=== PATIENT | male | born 1975 | race American Indian/Alaskan Native ===

== ENCOUNTER 2017-05-18 16:44 | Emergency (ER) | payer SELFPAY ==
[2017-05-18 18:37] LABS: Albumin 4.7 g/dL (3.9-5); BUN/Creatinine Ratio 13; Blood Urea Nitrogen 12 mg/dL (9-20); Calcium 9.5 mg/dL (8.4-10.2); Hemolysis Index 282
[2017-05-18 18:50] LABS: Alanine Aminotransferase 21 units/L (7-56)
[2017-05-18] MEDS ORDERED: TYLENOL ONE (19:03)
[2017-05-18 19:47] LABS: Hematocrit 45.1 % (35.5-45.6); Hemoglobin 15.2 gm/dl (11.8-15.2); Mean Corpuscular HGB Conc 34 % (32-34); Mean Corpuscular Hemoglobin 32 pg (28-32); Mean Corpuscular Volume 96 fl (84-94); Platelet Count 419 K/mm3 (140-440); Red Blood Count 4.71 M/mm3 (3.65-5.03)
[2017-05-18] MEDS ORDERED: TYLENOL PO ONE (19:54)
[2017-05-18] MEDS ORDERED: APRESOLINE IV ONE (20:47)
--- NOTE | 2017-05-18 20:52 | Emergency Department Report ---
Chief Complaint: Abdominal Pain Stated Complaint: ABDOMINAL PAIN Time Seen by Provider: 05/18/17 20:45 - HPI History of Present Illness: 41-year-old AA male presents with upper abdominal pain that started since earlier this morning. Patient just got out of halfway this morning as well. After leaving halfway he admits to drinking 3 of the 24 ounce beers, smoking marijuana and using some cocaine. He denies any past medical history. No fever , nausea, vomiting. Patient denies any significant diarrhea but does say that he soiled himself. - ROS Review of Systems: Patient patient is positive for abdominal pain, lower chest pain Patient denies nausea, vomiting, fever, back pain, dysuria - Exam Vital Signs: Vital Signs 05/18/17 05/18/17 17:04 19:55 Temperature 99.5 F Pulse Rate 118 H Respiratory 20 18 Rate Blood Pressure 175/99 O2 Sat by Pulse 96 Oximetry MSE screening note: Focused history and physical exam performed. Due to findings the following was ordered: I have added to the previous abdominal pain workup a troponin, EKG, Urinalysis, CT abd/Pelvis with IV contrast and a CXR. ED Medical Decision Making - Lab Data Result diagrams: 05/18/17 19:38 05/18/17 17:43 ED Disposition for MSE Condition: Stable Referrals: PATRICIA ALCOCER MD [Primary Care Provider] - 3-5 Days
--- NOTE | 2017-05-18 21:17 | Emergency Department Report ---
ED Abdominal Pain HPI - General Chief Complaint: Abdominal Pain Stated Complaint: ABDOMINAL PAIN Time Seen by Provider: 05/18/17 20:45 Source: patient Mode of arrival: Wheelchair Limitations: No Limitations - History of Present Illness Initial Comments: Patient reports that he was brought in by [place] [employer] with complaint of abdominal pain. Patient reports that he is having cramping around his navel. He said [facility]. Patient said that he did some cocaine. He drank 3-24 ounce beer and smoked marijuana also. He has a history of high blood pressure. Pains abdomen is 10 out of 10 and crampy. No medication taken. Denies any back pain ,denies any chest pain or shortness of breath. Denies any headache. Denies any nausea or vomiting. Denies any urinary burning frequency or urgency. Denies any neck pain or stiffness. Denies any fever or chills. Patient came to ED room in a wheelchair because he said he cannot walk. Patient does not appear to be intoxicated MD Complaint: abdominal pain -: This morning Location: periumbilical Radiation: none Migration to: no migration Severity: severe Severity scale (0 -10): 10 Quality: cramping Consistency: intermittent Improves With: nothing Worsens With: nothing Context: other (unknown) Associated Symptoms: denies: nausea, vomiting, diarrhea, fever, chills, constipation, dysuria, hematemesis, hematochezia, melena, hematuria, anorexia, syncope Treatments Prior to Arrival: other ( had no treatment.) - Related Data Previous Rx's Medication Instructions Recorded Last Taken Type HYDROcodone/APAP 5-325 [[place] 1 each PO Q6HR PRN #14 tablet 06/19/14 Unknown Rx 5/325] Ibuprofen [Motrin] 800 mg PO Q8H PRN #30 tablet 06/19/14 Unknown Rx methOCARBAMOL [Robaxin] 500 mg PO BID #10 tab 06/19/14 Unknown Rx Bisacodyl [Dulcolax] 10 mg PO DAILY 2 Days #4 tab 05/19/17 Unknown Rx Naproxen [Naprosyn TAB] 500 mg PO Q12H PRN #12 tablet 05/19/17 Unknown Rx amLODIPine [Norvasc] 5 mg PO DAILY 30 Days #30 tab 05/19/17 Unknown Rx Allergies Allergy/AdvReac Type Severity Reaction Status Date / Time No Known Allergies Allergy Verified 11/28/13 16:08 ED Review of Systems ROS: Stated complaint: ABDOMINAL PAIN Other details as noted in HPI Comment: All other systems reviewed and negative Constitutional: no symptoms reported ENT: denies: throat pain, congestion Respiratory: no symptoms reported Cardiovascular: denies: chest pain, palpitations, dyspnea on exertion, orthopnea , edema, syncope, paroxysmal nocturnal dyspnea Gastrointestinal: abdominal pain. denies: nausea, vomiting, diarrhea, constipation, hematemesis, melena, hematochezia Genitourinary: denies: urgency, dysuria, frequency, hematuria, discharge, testicular pain, testicular mass Musculoskeletal: denies: back pain, joint swelling, arthralgia, myalgia Skin: denies: rash Neurological: denies: headache, weakness, numbness, paresthesias, confusion, abnormal gait, vertigo ED Past Medical Hx - Past Medical History Previous Medical History?: Yes Hx Hypertension: Yes Hx CVA: No Hx Heart Attack/AMI: No Hx Congestive Heart Failure: No Hx Diabetes: No Hx Deep Vein Thrombosis: No Hx Pulmonary Embolism: No Hx GERD: No Hx Liver Disease: No Hx Renal Disease: No Hx Sickle Cell Disease: No Hx Arthritis: No Hx Headaches / Migraines: No Hx Seizures: No Hx Kidney Stones: No Hx Psychiatric Treatment: No Hx Asthma: No Hx COPD: No Hx Tuberculosis: No Hx Dementia: No Hx HIV: No - Surgical History Past Surgical History?: Yes Hx Coronary Stent: No Hx Open Heart Surgery: No Hx Pacemaker: No Hx Internal Defibrillator: No Hx Cholecystectomy: No Hx Appendectomy: No Hx Breast Surgery: No Additional Surgical History: Right Leg surgery - Family History Family history: no significant - Social History Smoking Status: Current Some Day Smoker Substance Use Type: Alcohol, Cocaine, Other - Medications Home Medications: Home Medications Medication Instructions Recorded Confirmed Last Taken Type HYDROcodone/APAP 5-325 [[place] 1 each PO Q6HR PRN #14 tablet 06/19/14 Unknown Rx 5/325] Ibuprofen [Motrin] 800 mg PO Q8H PRN #30 tablet 06/19/14 Unknown Rx methOCARBAMOL [Robaxin] 500 mg PO BID #10 tab 06/19/14 Unknown Rx Bisacodyl [Dulcolax] 10 mg PO DAILY 2 Days #4 tab 05/19/17 Unknown Rx Naproxen [Naprosyn TAB] 500 mg PO Q12H PRN #12 tablet 05/19/17 Unknown Rx amLODIPine [Norvasc] 5 mg PO DAILY 30 Days #30 tab 05/19/17 Unknown Rx ED Physical Exam - General Limitations: No Limitations General appearance: alert, in no apparent distress - Head Head exam: Present: atraumatic, normocephalic, normal inspection, other (normal exam) - Eye Eye exam: Present: normal appearance, PERRL, EOMI. Absent: scleral icterus, conjunctival injection, nystagmus, periorbital swelling, periorbital tenderness Pupils: Present: normal accommodation - ENT ENT exam: Present: normal exam, normal orophraynx, mucous membranes moist - Neck Neck exam: Present: normal inspection, full ROM, other (no C-spine tenderness). Absent: tenderness, meningismus, lymphadenopathy, thyromegaly - Respiratory Respiratory exam: Present: normal lung sounds bilaterally. Absent: respiratory distress, chest wall tenderness, accessory muscle use - Cardiovascular Cardiovascular Exam: Present: normal rhythm, tachycardia, normal heart sounds. Absent: systolic murmur, diastolic murmur - GI/Abdominal GI/Abdominal exam: Present: soft, normal bowel sounds. Absent: distended, tenderness, guarding, rebound, rigid, organomegaly, mass, bruit, pulsatile mass , hernia - Extremities Exam Extremities exam: Present: normal inspection, full ROM, normal capillary refill , other (no Clubbing, cyanosis or edema. +2 pulses to all extremities and no neurovascular compromise). Absent: tenderness, pedal edema, joint swelling, calf tenderness - Back Exam Back exam: Present: normal inspection, full ROM, other (patient able to ambulate without any difficulty. Initially patient did not want to get up to ambulate but he got up several times after IV fluid started to go to the bathroom without any problems.). Absent: tenderness, CVA tenderness (R), CVA tenderness (L), muscle spasm, paraspinal tenderness, vertebral tenderness, rash noted - Neurological Exam Neurological exam: Present: alert, oriented X3, normal gait, reflexes normal. Absent: motor sensory deficit - Expanded Neurological Exam Expanded Neurological exam: Absent: innattentive, memory loss-remote event, memory loss- recent event, ataxia, receptive aphasia, expressive aphasia, total aphasia, tremor, protecting the airway Patient oriented to: Present: person, place, time Speech: Present: fluid speech Cranial nerves: EOM's Intact: Normal, Gag Reflex: Normal, Tongue Deviation: Normal, Nystagmus: Normal, Facial Sensation: Normal Cerebellar function: Romberg: Normal Upper motor neuron: Pronator Drift: Normal, Sensory Extinction: Normal Sensory exam: Upper Extremity Light Touch: Normal, Upper Extremity Temperature: Normal, UE 2 Point Discrimination: Normal, Lower Extremity Light Touch: Normal, Lower Extremity Pin Prick: Normal, LE 2 Point Discrimination: Normal Motor strength exam: RUE: 5, LUE: 5, RLE: 5, LLE: 5 DTR: bicep (R): 2+, bicep (L): 2+, tricep (R): 2+, tricep (L): 2+, knee (R): 2+ , knee (L): 2+, ankle (R): 2+, ankle (L): 2+ Best Eye Response ([place]): (4) open spontaneously Best Motor Response ([place]): (6) obeys commands Best Verbal Response ([place]): (5) oriented [place] Total: 15 - Psychiatric Psychiatric exam: Present: normal affect, normal mood - Skin Skin exam: Present: warm, dry, intact, normal color. Absent: rash ED Course Vital Signs 05/18/17 05/18/17 05/18/17 17:04 19:55 23:26 Temperature 99.5 F Pulse Rate 118 H 69 Respiratory 20 18 17 Rate Blood Pressure 175/99 Blood Pressure 130/81 [Right] O2 Sat by Pulse 96 97 Oximetry Vital Signs 05/18/17 05/18/17 05/18/17 17:04 19:55 23:26 Temperature 99.5 F Pulse Rate 118 H 69 Respiratory 20 18 17 Rate Blood Pressure 175/99 Blood Pressure [Left] Blood Pressure 130/81 [Right] O2 Sat by Pulse 96 97 Oximetry 05/19/17 01:25 Temperature 97.8 F Pulse Rate 66 Respiratory 18 Rate Blood Pressure Blood Pressure 127/58 [Left] Blood Pressure [Right] O2 Sat by Pulse 100 Oximetry - Reevaluation(s) Reevaluation #1: 05/18/17 22:29 Patient is stable. IV fluid infusing. Patient awaiting CT scan of the abdomen. Awaiting other lab results. White count is elevated. Tender to palpate the periumbilical area Reevaluation #2: 05/18/17 23:09 Patient abdominal exam is stable. Chest x-ray revealed no acute cardiopulmonary findings. Still waiting for CT results. Urinalysis is pending. Blood alcohol level is less than 0 Reevaluation #3: 05/19/17 00:36 Patient is stable. He received IV fluid. No abdominal pain or tenderness at present. EKG stable troponin is negative. ED Medical Decision Making - Lab Data Result diagrams: 05/18/17 19:38 05/18/17 17:43 Lab Results 05/18/17 05/18/17 05/18/17 Range/Units 17:07 17:43 18:26 WBC (4.5-11.0) K/mm3 RBC (3.65-5.03) M/mm3 Hgb (11.8-15.2) gm/dl Hct (35.5-45.6) % MCV (84-94) fl MCH (28-32) pg MCHC (32-34) % RDW (13.2-15.2) % Plt Count (140-440) K/mm3 Lymph % (Auto) [place] % (Auto) Eos % (Auto) Baso % (Auto) Lymph # [place] # Eos # Baso # Add Manual Diff Total Counted Seg Neutrophils % Seg Neuts % (Manual) (40.0-70.0) % Band Neutrophils % % Lymphocytes % (Manual) (13.4-35.0) % Reactive Lymphs % (Man) % Monocytes % (Manual) (0.0-7.3) % Eosinophils % (Manual) (0.0-4.3) % Basophils % (Manual) (0.0-1.8) % Metamyelocytes % % Myelocytes % % Promyelocytes % % Blast Cells % % Nucleated RBC % Seg Neutrophils # Seg Neutrophils # Man (1.8-7.7) K/mm3 Band Neutrophils # K/mm3 Lymphocytes # (Manual) (1.2-5.4) K/mm3 Abs React Lymphs (Man) K/mm3 Monocytes # (Manual) (0.0-0.8) K/mm3 Eosinophils # (Manual) (0.0-0.4) K/mm3 Basophils # (Manual) (0.0-0.1) K/mm3 Metamyelocytes # K/mm3 Myelocytes # K/mm3 Promyelocytes # K/mm3 Blast Cells # K/mm3 WBC Morphology Hypersegmented Neuts Hyposegmented Neuts Hypogranular Neuts Smudge Cells Toxic Granulation Toxic Vacuolation Dohle Bodies Pelger-Huet Anomaly Mike Rods Platelet Estimate Clumped Platelets Plt Clumps, EDTA Large Platelets Giant Platelets Platelet Satelliting Plt Morphology Comment RBC Morphology Dimorphic RBCs Polychromasia Hypochromasia Poikilocytosis Anisocytosis Microcytosis Macrocytosis Spherocytes Pappenheimer Bodies Sickle Cells Target Cells Tear Drop Cells Ovalocytes Helmet Cells [place] Bodies [place] Rings [place] Cells Bite Cells Crenated Cell Elliptocytes Acanthocytes (Spur) Rouleaux Hemoglobin C Crystals Schistocytes Malaria parasites [place] Bodies Hem Pathologist Commnt Sodium 136 L (137-145) mmol/L Potassium 5.2 H (3.6-5.0) mmol/L Chloride 98.1 (98-107) mmol/L Carbon Dioxide 22 (22-30) mmol/L Anion Gap 21 mmol/L BUN 12 (9-20) mg/dL Creatinine 0.9 (0.8-1.5) mg/dL Estimated GFR > 60 ml/min BUN/Creatinine Ratio 13 % Glucose 91 (75-100) mg/dL POC Glucose 104 (70-105) Calcium 9.5 (8.4-10.2) mg/dL Total Bilirubin 0.80 (0.1-1.2) mg/dL AST 44 H (5-40) units/L ALT 21 (7-56) units/L Alkaline Phosphatase 122 (35-129) units/L Troponin T (0.00-0.029) ng/mL Total Protein 7.7 (6.3-8.2) g/dL Albumin 4.7 (3.9-5) g/dL Albumin/Globulin Ratio 1.6 % Lipase 25 (13-60) units/L Urine Color (Yellow) Urine Turbidity (Clear) Urine pH (5.0-7.0) Ur Specific [place] (1.003-1.030) Urine Protein (Negative) mg/dL Urine Glucose (UA) (Negative) mg/dL Urine Ketones (Negative) mg/dL Urine Blood (Negative) Urine Nitrite (Negative) Urine Bilirubin (Negative) Urine Urobilinogen (<2.0) mg/dL Ur Leukocyte Esterase (Negative) Urine WBC (Auto) (0.0-6.0) /HPF Urine RBC (Auto) (0.0-6.0) /HPF U Epithel Cells (Auto) (0-13.0) /HPF Urine Mucus /HPF Urine Opiates Screen Urine Methadone Screen Ur Barbiturates Screen Ur Phencyclidine Scrn Ur Amphetamines Screen U Benzodiazepines Scrn Urine Cocaine Screen U Marijuana (THC) Screen Plasma/Serum Alcohol (0-0.07) % 05/18/17 05/18/17 05/18/17 Range/Units 19:38 21:03 21:03 WBC 23.3 H (4.5-11.0) K/mm3 RBC 4.71 (3.65-5.03) M/mm3 Hgb 15.2 (11.8-15.2) gm/dl Hct 45.1 (35.5-45.6) % MCV 96 H (84-94) fl MCH 32 (28-32) pg MCHC 34 (32-34) % RDW 14.0 (13.2-15.2) % Plt Count 419 (140-440) K/mm3 Lymph % (Auto) Clinical Abstractor [place] % (Auto) Clinical Abstractor Eos % (Auto) Clinical Abstractor Baso % (Auto) Clinical Abstractor Lymph # Clinical Abstractor [place] # Clinical Abstractor Eos # Clinical Abstractor Baso # Clinical Abstractor Add Manual Diff Complete Total Counted 100 Seg Neutrophils % Clinical Abstractor Seg Neuts % (Manual) 78.0 H (40.0-70.0) % Band Neutrophils % 1.0 % Lymphocytes % (Manual) 14.0 (13.4-35.0) % Reactive Lymphs % (Man) 0 % Monocytes % (Manual) 7.0 (0.0-7.3) % Eosinophils % (Manual) 0 (0.0-4.3) % Basophils % (Manual) 0 (0.0-1.8) % Metamyelocytes % 0 % Myelocytes % 0 % Promyelocytes % 0 % Blast Cells % 0 % Nucleated RBC % Not Reportable Seg Neutrophils # Clinical Abstractor Seg Neutrophils # Man 18.2 H (1.8-7.7) K/mm3 Band Neutrophils # 0.2 K/mm3 Lymphocytes # (Manual) 3.3 (1.2-5.4) K/mm3 Abs React Lymphs (Man) 0.0 K/mm3 Monocytes # (Manual) 1.6 H (0.0-0.8) K/mm3 Eosinophils # (Manual) 0.0 (0.0-0.4) K/mm3 Basophils # (Manual) 0.0 (0.0-0.1) K/mm3 Metamyelocytes # 0.0 K/mm3 Myelocytes # 0.0 K/mm3 Promyelocytes # 0.0 K/mm3 Blast Cells # 0.0 K/mm3 WBC Morphology Not Reportable Hypersegmented Neuts Not Reportable Hyposegmented Neuts Not Reportable Hypogranular Neuts Not Reportable Smudge Cells Not Reportable Toxic Granulation Not Reportable Toxic Vacuolation Not Reportable Dohle Bodies Not Reportable Pelger-Huet Anomaly Not Reportable Mike Rods Not Reportable Platelet Estimate Consistent w auto Clumped Platelets Not Reportable Plt Clumps, EDTA Not Reportable Large Platelets Not Reportable Giant Platelets Not Reportable Platelet Satelliting Not Reportable Plt Morphology Comment Not Reportable RBC Morphology Normal Dimorphic RBCs Not Reportable Polychromasia Not Reportable Hypochromasia Not Reportable Poikilocytosis Not Reportable Anisocytosis Not Reportable Microcytosis Not Reportable Macrocytosis Not Reportable Spherocytes Not Reportable Pappenheimer Bodies Not Reportable Sickle Cells Not Reportable Target Cells Not Reportable Tear Drop Cells Not Reportable Ovalocytes Not Reportable Helmet Cells Not Reportable [place] Bodies Not Reportable [place] Rings Not Reportable [place] Cells Not Reportable Bite Cells Not Reportable Crenated Cell Not Reportable Elliptocytes Not Reportable Acanthocytes (Spur) Not Reportable Rouleaux Not Reportable Hemoglobin C Crystals Not Reportable Schistocytes Not Reportable Malaria parasites Not Reportable [place] Bodies Not Reportable Hem Pathologist Commnt No Sodium (137-145) mmol/L Potassium (3.6-5.0) mmol/L Chloride (98-107) mmol/L Carbon Dioxide (22-30) mmol/L Anion Gap mmol/L BUN (9-20) mg/dL Creatinine (0.8-1.5) mg/dL Estimated GFR ml/min BUN/Creatinine Ratio % Glucose (75-100) mg/dL POC Glucose (70-105) Calcium (8.4-10.2) mg/dL Total Bilirubin (0.1-1.2) mg/dL AST (5-40) units/L ALT (7-56) units/L Alkaline Phosphatase (35-129) units/L Troponin T < 0.010 (0.00-0.029) ng/mL Total Protein (6.3-8.2) g/dL Albumin (3.9-5) g/dL Albumin/Globulin Ratio % Lipase (13-60) units/L Urine Color (Yellow) Urine Turbidity (Clear) Urine pH (5.0-7.0) Ur Specific [place] (1.003-1.030) Urine Protein (Negative) mg/dL Urine Glucose (UA) (Negative) mg/dL Urine Ketones (Negative) mg/dL Urine Blood (Negative) Urine Nitrite (Negative) Urine Bilirubin (Negative) Urine Urobilinogen (<2.0) mg/dL Ur Leukocyte Esterase (Negative) Urine WBC (Auto) (0.0-6.0) /HPF Urine RBC (Auto) (0.0-6.0) /HPF U Epithel Cells (Auto) (0-13.0) /HPF Urine Mucus /HPF Urine Opiates Screen Urine Methadone Screen Ur Barbiturates Screen Ur Phencyclidine Scrn Ur Amphetamines Screen U Benzodiazepines Scrn Urine Cocaine Screen U Marijuana (THC) Screen Plasma/Serum Alcohol < 0.01 (0-0.07) % 05/18/17 05/18/17 Range/Units 23:32 23:32 WBC (4.5-11.0) K/mm3 RBC (3.65-5.03) M/mm3 Hgb (11.8-15.2) gm/dl Hct (35.5-45.6) % MCV (84-94) fl MCH (28-32) pg MCHC (32-34) % RDW (13.2-15.2) % Plt Count (140-440) K/mm3 Lymph % (Auto) [place] % (Auto) Eos % (Auto) Baso % (Auto) Lymph # [place] # Eos # Baso # Add Manual Diff Total Counted Seg Neutrophils % Seg Neuts % (Manual) (40.0-70.0) % Band Neutrophils % % Lymphocytes % (Manual) (13.4-35.0) % Reactive Lymphs % (Man) % Monocytes % (Manual) (0.0-7.3) % Eosinophils % (Manual) (0.0-4.3) % Basophils % (Manual) (0.0-1.8) % Metamyelocytes % % Myelocytes % % Promyelocytes % % Blast Cells % % Nucleated RBC % Seg Neutrophils # Seg Neutrophils # Man (1.8-7.7) K/mm3 Band Neutrophils # K/mm3 Lymphocytes # (Manual) (1.2-5.4) K/mm3 Abs React Lymphs (Man) K/mm3 Monocytes # (Manual) (0.0-0.8) K/mm3 Eosinophils # (Manual) (0.0-0.4) K/mm3 Basophils # (Manual) (0.0-0.1) K/mm3 Metamyelocytes # K/mm3 Myelocytes # K/mm3 Promyelocytes # K/mm3 Blast Cells # K/mm3 WBC Morphology Hypersegmented Neuts Hyposegmented Neuts Hypogranular Neuts Smudge Cells Toxic Granulation Toxic Vacuolation Dohle Bodies Pelger-Huet Anomaly Mike Rods Platelet Estimate Clumped Platelets Plt Clumps, EDTA Large Platelets Giant Platelets Platelet Satelliting Plt Morphology Comment RBC Morphology Dimorphic RBCs Polychromasia Hypochromasia Poikilocytosis Anisocytosis Microcytosis Macrocytosis Spherocytes Pappenheimer Bodies Sickle Cells Target Cells Tear Drop Cells Ovalocytes Helmet Cells [place] Bodies [place] Rings [place] Cells Bite Cells Crenated Cell Elliptocytes Acanthocytes (Spur) Rouleaux Hemoglobin C Crystals Schistocytes Malaria parasites [place] Bodies Hem Pathologist Commnt Sodium (137-145) mmol/L Potassium (3.6-5.0) mmol/L Chloride (98-107) mmol/L Carbon Dioxide (22-30) mmol/L Anion Gap mmol/L BUN (9-20) mg/dL Creatinine (0.8-1.5) mg/dL Estimated GFR ml/min BUN/Creatinine Ratio % Glucose (75-100) mg/dL POC Glucose (70-105) Calcium (8.4-10.2) mg/dL Total Bilirubin (0.1-1.2) mg/dL AST (5-40) units/L ALT (7-56) units/L Alkaline Phosphatase (35-129) units/L Troponin T (0.00-0.029) ng/mL Total Protein (6.3-8.2) g/dL Albumin (3.9-5) g/dL Albumin/Globulin Ratio % Lipase (13-60) units/L Urine Color Yellow (Yellow) Urine Turbidity Clear (Clear) Urine pH 5.0 (5.0-7.0) Ur Specific [place] 1.028 (1.003-1.030) Urine Protein 30 mg/dl (Negative) mg/dL Urine Glucose (UA) Neg (Negative) mg/dL Urine Ketones 20 (Negative) mg/dL Urine Blood Neg (Negative) Urine Nitrite Neg (Negative) Urine Bilirubin Neg (Negative) Urine Urobilinogen 2.0 (<2.0) mg/dL Ur Leukocyte Esterase Neg (Negative) Urine WBC (Auto) 2.0 (0.0-6.0) /HPF Urine RBC (Auto) 3.0 (0.0-6.0) /HPF U Epithel Cells (Auto) < 1.0 (0-13.0) /HPF Urine Mucus 1+ /HPF Urine Opiates Screen Presumptive negative Urine Methadone Screen Presumptive negative Ur Barbiturates Screen Presumptive negative Ur Phencyclidine Scrn Presumptive negative Ur Amphetamines Screen Presumptive negative U Benzodiazepines Scrn Presumptive negative Urine Cocaine Screen Presumptive positive U Marijuana (THC) Screen Presumptive negative Plasma/Serum Alcohol (0-0.07) % Urine culture pending - EKG Data -: EKG Interpreted by Me (sinus rhythm at 71 bpm) EKG shows normal: sinus rhythm Rate: normal - EKG Data Interpretation: no acute changes - Radiology Data Radiology results: report reviewed X-ray showed no acute cardiopulmonary findings CT scan of the abdomen and pelvis with IV contrast she'll patient with moderate degree residual stool. 1 x 2 x 0.8 cm focal lesion of the right lobe liver demonstrated characteristics of a hemangioma. However a neoplastic lesion cannot be entirely excluded. A pre-and postcontrast MRI is recommended for further follow-up. Patient is nontender to palpate upper quadrant of abdomen. - Medical Decision Making Dr. Nelson initially saw Patient and initiated screening ED course: In cancer emergency room report he has abdominal pain and also reported that he had taken cocaine after [facility]. Patient has no complaint of chest pain or shortness of breath. He denies any head injury, headache neck pain or stiffness. Denies any falling. Physical findings were intact neurological system and patient had said that he was having difficulty walking when he came to triage area the patient demonstrated walk-in several times while in the emergency room without any real estate legal assistant. He needed real estate legal assistant initially to go to the bathroom but after IV fluid was able to ambulate without any difficulties. Urine drug screen positive for cocaine. Patient labs CBC shows elevated white count at 23.3 out any source of infection without any source of infection. Suspect this is from hypermetabolic state after using cocaine. Urinalysis negative for bacterial infection, positive for ketones and specific gravity is elevated which suggests dehydration. Patient was given 1 L of normal saline in the emergency room. Chemistry stable potassium is 5.2. EKG shows sinus rhythm and at [address] abnormality. Troponin is negative. This x-ray revealed no acute cardiopulmonary processes. Blood alcohol level is less than 0.01 CT scan of the abdomen and pelvis with IV contrast shows moderate degree of residual stool. Patient at 1.2 cm x 0.8 cm focal lesion of the right lower lobe which demonstrates characteristics of her meningioma but neoplastic lesion cannot be ruled out. Radiologist suggests pre- and post contrast MRI. Patient is nontender to palpate to right upper quadrant of abdomen. Abdominal exam is normal. Liver enzymes and bilirubin are within normal limits. I discussed findings with patient and I told him that he'll need to follow-up with veneer glue spreader was a stomach doctor and surgeon. I also told him since he does not have a primary care he needs to follow-up with outside [facility] to call in the morning to schedule an appointment for primary care visit. Patient will be given copies of his CD for x-ray and ultrasound. I'll also give patient copy of his lab report. Patient given hydralazine [address] Nelson for blood pressure in emergency room 175/ 99. His blood pressure is now stable and his heart rate is at normal rate. She cannot remember blood pressure medication that he takes . I collaborated with Dr. Jinny Irizarry on patient presentation, clinical, diagnostic and lab findings and it was agreed upon that she can be discharged home to follow up outpatient primary care, surgery and veneer glue spreader. Patient discharged home in stable condition with prescription for Dulcolax to treat constipation, naproxen for pain and was instructed to refrain from drinking alcohol, smoking and taking cocaine as all of these substances could lead to organ damage and ultimately . Critical care attestation.: If time is entered above; I have spent that time in minutes in the direct care of this critically ill patient, excluding procedure time. ED Disposition Clinical Impression: Polysubstance abuse, Liver lesion, right lobe, Elevated blood pressure reading with diagnosis of hypertension Abdominal pain Qualifiers: Abdominal location: upper abdomen, unspecified Qualified Code(s): R10.10 - Upper abdominal pain, unspecified Constipation Qualifiers: Constipation type: unspecified constipation type Qualified Code(s): K59.00 - Constipation, unspecified Leukocytosis, unspecified Qualifiers: Leukocytosis type: unspecified Qualified Code(s): D72.829 - Elevated white blood cell count, unspecified Disposition: - TO HOME OR SELFCARE Is pt being admited?: No Does the pt Need Aspirin: No Condition: Stable Instructions: Low Sodium Diet (ED), DASH Eating Plan (ED), Hypertension (ED), Abdominal Pain (ED), Leukocytosis (ED), High Fiber Diet (ED), Constipation (ED) , How to Take a Blood Pressure (ED) Additional Instructions: You have a lesion on the right lobe of a few liver.You will need to follow-up with veneer glue spreader was stomach doctor and also surgery to have further evaluation as this might be cancerous. If you continue to have abdominal pain or if your abdominal pain returns, please return to the emergency room. Follow-up with outside [facility] for primary care visit call in the morning to schedule an appointment. Please take CD of x-ray and CT scan results all your doctor's visit. Take lab work with you a doctor's visit Please avoid taking cocaine as this could lead to a heart attack, stroke and organ failure or even . Please do not take any Tylenol or drink alcohol as the substances or toxic to liver These keep track a few blood pressure on a daily basis and keep a written log to take your primary care visit with you. Prolonged elevation in the pressure came cause heart attack, kidney failure, stroke and eventually Please stop smoking Prescriptions: amLODIPine [Norvasc] 5 mg PO DAILY 30 Days #30 tab Bisacodyl [Dulcolax] 10 mg PO DAILY 2 Days #4 tab Naproxen [Naprosyn TAB] 500 mg PO Q12H PRN #12 tablet PRN Reason: Pain Referrals: [facility] [Outside] - 05/20/17 [facility] [Provider Group] - 05/21/17 JIGNESH REYES DO [Staff Physician] - 05/28/17 Forms: Work/School Release Form(ED)
[2017-05-18 21:20] LABS: Band Neutrophils # (Manual) 0.2 K/mm3; Basophils % (Manual) 0 % (0.0-1.8); Eosinophils % (Manual) 0 % (0.0-4.3); Platelet Estimate Consistent w Auto; RBC Morphology Normal; Total Cells Counted 100
[2017-05-18] MEDS ORDERED: NACL 0.9% 1000 ML 1,000 ML IV ONE (21:42)
--- NOTE | 2017-05-18 22:12 | XRay Report ---
FINAL REPORT PROCEDURE: XR CHEST 1V AP TECHNIQUE: Chest radiograph anteroposterior view. CPT 32947 HISTORY: Chest pain COMPARISON: No prior studies are available for comparison. FINDINGS: Heart: Normal. Mediastinum/Vessels: Normal. Lungs/Pleural space: No infiltrate, effusion, or pneumothorax. Bony thorax: No acute osseous abnormality. Life support devices: None. IMPRESSION: No radiographic evidence of acute cardiopulmonary abnormality.
--- NOTE | 2017-05-18 23:27 | Cat Scan Report ---
FINAL REPORT PROCEDURE: CT ABDOMEN PELVIS W CON TECHNIQUE: Computerized axial tomography of the abdomen and pelvis was performed after the IV injection of iodinated nonionic contrast. HISTORY: Abd pain COMPARISON: No prior studies are available for comparison. FINDINGS: Liver demonstrates an ill-defined hypodense lesion measuring 1.2 x 0.8 centimeters in the segment 6 of right lobe. This lesion becomes isodense on delayed phase post-contrast images. Spleen, pancreas and adrenal glands are within normal limits. Bilateral kidneys demonstrate uniform enhancement without hydronephrosis. Urinary bladder is contracted. Aorta is of normal caliber. There is no free fluid or free air. Gallbladder is unremarkable. Small bowel loops are within normal limits. Appendix is normal. Moderate degree residual stool is noted in the colon and rectum. IMPRESSION: 1.2 x 0.8 centimeter focal lesion of the right lobe liver demonstrates characteristics of a hemangioma. However a neoplastic lesion cannot be entirely excluded. A pre and post-contrast MRI is recommended for further evaluation. Moderate degree residual stool.
[2017-05-18 23:53] LABS: Amphetamine Screen,Urine PRESUMPTIVE NEGATIVE; Benzodiazepines Screen,Urine PRESUMPTIVE NEGATIVE; Cannabinoid Screen,Urine PRESUMPTIVE NEGATIVE; Methadone Screen,Urine PRESUMPTIVE NEGATIVE; Opiate Screen,Urine PRESUMPTIVE NEGATIVE
[2017-05-18 23:55] LABS: Bilirubin,Urine NEG (Negative); Blood,Urine NEG (Negative); Color,Urine Yellow (Yellow); Mucus,Urine 1+ /HPF
[2017-05-19 00:20] LABS: Cocaine Screen,Urine PRESUMPTIVE POSITIVE
[2017-05-19 01:26] VITALS: BP 127/58
== END 2017-05-19 02:15 | disposition home or self-care (01) ==
LOC: ED 16:44
DX: K76.9 Liver disease, unspecified (principal); D72.829 Elevated white blood cell count, unspecified; I10 Essential (primary) hypertension; F17.200 Nicotine dependence, unspecified, uncomplicated; F19.10 Other psychoactive substance abuse, uncomplicated; F14.10 Cocaine abuse, uncomplicated; Z79.899 Other long term (current) drug therapy
CPT/HCPCS: 36415; 71045; 74177; 80053; 80307; 81001; 82962; 83690; 84484; 85007; 85025; 87086; 93005; 93010; 96360; 99285; G0480; J7030; Q9967; 80320